=== PATIENT | male | born 1960 | race Caucasian/White ===

== ENCOUNTER 2016-11-17 07:47 | Emergency (ER) | payer BC ==
[~2016-11-17 07:47] MED LIST: NO MEDICATIONS
[2016-11-17] MEDS ORDERED: NORCO 5-325 TA1 EACH PO (08:54)
== END 2016-11-17 09:20 ==
LOC: EDMED 07:47
DX: S42.021A Displaced fracture of shaft of right clavicle, initial encounter for closed fracture (principal); S20.311A Abrasion of right front wall of thorax, initial encounter; S80.211A Abrasion, right knee, initial encounter; S70.311A Abrasion, right thigh, initial encounter; S60.512A Abrasion of left hand, initial encounter; V19.9XXA Pedal cyclist (driver) (passenger) injured in unspecified traffic accident, initial encounter; Y93.55 Activity, bike riding; Y99.8 Other external cause status